=== PATIENT | male | born 1990 | race Caucasian/White ===

== ENCOUNTER 2018-12-20 09:15 | Observation (INO) ==
[2018-12-20 09:41] LABS: Urine Bilirubin Negative (NEGATIVE); Urine Blood 25 /ul (NEGATIVE); Urine Ketone Negative (NEGATIVE); Urine Nitrite Negative (NEGATIVE); Urine Protein Negative (NEGATIVE); Urine Specific Gravity >=1.030 SP.GR. (1.005-1.030); Urine Urobilinogen Normal (NORMAL); Urine pH 5.5 pH (5.0-7.0)
[2018-12-20 09:48] LABS: Urine Appearance Clear (CLEAR); Urine Bacteria None Seen; Urine Color Yellow; Urine RBC None Seen /hpf (0-5); Urine WBC None Seen /hpf (0-5)
[2018-12-20 09:50] LABS: Hematocrit 45.7 % (42.0-52.0); Hemoglobin 15.9 gm/dL (13.5-18.0); Mean Corpuscular Hemoglobin 31.7 pg (27-31); Mean Corpuscular Hgb Conc 34.8 g/dl (32-36); Mean Platelet Volume 9.4 fl (8-11.3); Neutrophil # 6.7 K/mm3 (1.3-6.0); Neutrophil % 64.7 % (42-75.0); Platelet Count 267 K/mm3 (150-450); Red Blood Count 5.02 M/mm3 (4.7-6.0); Red Cell Distribution Width 11.9 % (11.5-14.0); White Blood Count 10.4 K/mm3 (4.0-10.5)
[2018-12-20 09:59] LABS: Albumin * 4.3 gm/dl (3.4-5.0); Anion Gap 15.2 mmol/L (6.8-13.8); BUN/Creatinine Ratio 12.6 (9.0-21.6); Bilirubin, Total 0.5 mg/dL (0.0-1.1); Ca. Corrected For Albumin 8.8 mg/dL (8.4-10.2); Calcium * 9.4 mg/dL (7.9-10.9); Carbon Dioxide 25.3 mmol/L (24-32.6); Potassium 3.5 mmol/L (3.4-4.6); Total Protein 7.6 gm/dL (6.2-8.2)
[2018-12-20] MEDS ORDERED: KETOROLAC TROMETHAMINE 30 MG/ML VIAL IM ONE (09:59)
[2018-12-20] MEDS ORDERED: MORPHINE SULFATE 4 MG/ML SYRG IM ONE (10:43)
--- NOTE | 2018-12-20 10:49 | ERNOTE ---
Abdominal HPI - Narrative Date of Service: 12/20/18 - General Chief Complaint: Abdominal Pain Time Seen by Provider: 12/20/18 09:52 Source: patient Exam Limitations: no limitations - Immun/Allergies/Home Medications Immunizatons: IMMUNIZATION HX Immunizations Up to Date Yes History of Influenza Vaccine No Hx Pneumococcal Vaccination No Allergies/Adverse Reactions: Allergies No Known Drug Allergies Allergy (Verified 03/04/16 08:32) Home Medications: HOME MEDICATIONS NK 12/20/18 [Last Taken Unknown] - History of Present Illness Narrative: Patient presents to the ED for upper abdominal pain. This started at 5am and has been persistent since. He has had a few bouts of this in the past but it has always gone away. Never persisted like this. One emesis here. No diarrhea. No back pain. No CP or SOB. No testicular pain or urinary symptoms. Nothing makes this better or worse. Has not seen anyone for this in the past. No low abdominal pain. Timing: constant Quality: severe Activities at Onset: none Modifying Factors - (Improves): Present: other - nothing Modifying Factors - (Worsens): Present: other - nothing Associated Symptoms: Present: nausea, vomiting. Absent: diaphoresis, fever/chills, heartburn, shortness of breath Prior Abdominal Problems: Present: similar symptoms Prior Treatment: Absent: recently seen Review of Systems - Review of Systems Constitutional: Absent: fever EYE: Present: no symptoms reported ENT: Absent: sore throat Respiratory: Absent: shortness of breath Cardiology: Absent: chest pain Gastrointestinal/Abdominal: Present: See HPI Genitourinary: Absent: dysuria Musculoskeletal: Present: no symptoms reported Skin: Absent: rash All Other Systems: All systems neg except as marked Medical History (Updated 12/20/18 @ 11:54 by Ariana Jean RN) No pertinent past medical history Surgical History: Surgical History (Updated 12/20/18 @ 11:55 by Ariana Jean RN) No pertinent past surgical history Family History: Family History (Updated 12/20/18 @ 11:55 by Ariana Jean RN) Other No pertinent family history Social History: Preferred Language Divehi Do you have any evangelical or No cultural preference? Smoking Status Never smoker Have you smoked in the past 12 No months Do you dip or chew tobacco No Psych History No pertinent hx Alcohol Use none Drug Use marijuana No Social History Section defined Physical Exam - Physical Exam General Appearance: Present: alert, no apparent distress Head Exam: Present: normal inspection, no evidence of injury Eye Exam: Normal inspection: bilateral, PERRL: bilateral Ears, Nose, Throat: Present: normal ENT inspection Neck: Present: normal inspection Respiratory: Present: no respiratory distress, normal breath sounds, no accessory muscle use, lungs clear Cardiovascular/Chest: Present: regular rate, rhythm, normal peripheral pulses Gastrointestinal/Abdominal: Present: normal bowel sounds, nondistended, soft, other - RUQ tenderness and epigastric tenderness. No low abdominal tenderness. No RLQ tenderness. Back Exam: Absent: CVA tenderness (R), CVA tenderness (L) Extremity Exam: Present: normal inspection, non-tender, normal range of motion Neurological Exam: Present: alert, no motor/sensory deficits Skin Exam: Present: normal color, warm/dry Progress - Results and Orders Patient's Lab Results:: I have reviewed the patient's lab results. - Vital Signs Patient's Vital Signs:: I have reviewed the patient's vital signs. Vital Signs: Vital Signs 12/20/18 09:22 Temperature 35.6 C L Pulse Rate 69 Respiratory Rate 17 Blood Pressure 157/114 H O2 Sat by Pulse Oximetry 99 - X-Ray X-Ray #1 X-Ray: abdomen Interpretation: Interp. by me X-ray Comments: I reviewed official radiology report - CT/Ultrasound CT/Ultrasound Narrative: I reviewed official radiology report for RUQ US. - Progress/Reassessment Chief Complaint: Abdominal Pain Progress Note-Subjective: 12/20/18 11:57 IV ABx ordered. D/W Dr Ramos who will see the patient in the ED. Patient notified and understands. Departure Clinical Impression: Gallbladder pain, Gallstones, Abdominal pain - Departure Disposition: Still a patient Condition: Stable
[2018-12-20] MEDS ORDERED: PIPERACILLIN SODIUM/TAZOBACTAM 3.375 GM in DEXTROSE 5 % IN WATER 100 ML IV ONE ×2 (11:49)
--- NOTE | 2018-12-20 12:13 | HP ---
Chief Complaint - Chief Complaint Date of Service: 12/20/18 Time of Service: 12:08 Chief Complaint: acute cholecystitis History of Present Illness: Zay is a pleasant 28-year-old gentleman who awoke with abdominal pain this morning. The pain did not go away. It was so severe that it brought him to tears. The pain has improved since he has been in the ER, and received pain medication. He tried to make himself throw up to feel better which was ineffective. He had a bowel movement which also did not help. He has had this pain before, but it is only lasted for a few minutes. He is otherwise healthy. Medical History (Updated 12/20/18 @ 11:58 by Fish Rod MD) No pertinent past medical history Surgical History: Surgical History (Updated 12/20/18 @ 11:55 by Ariana Jean RN) No pertinent past surgical history Family History: Family History (Updated 12/20/18 @ 11:55 by Ariana Jean RN) Other No pertinent family history Social History: Preferred Language Turkish Do you have any zoroastrianism or No cultural preference? Smoking Status Never smoker Have you smoked in the past 12 No months Do you dip or chew tobacco No Psych History No pertinent hx Alcohol Use none Drug Use marijuana No Social History Section defined Review Of Systems (GEN) - Review of Systems Generalized/Overall Review: Present: Malaise EENTM: Present: No Symptoms Reported Respiratory: Present: No Symptoms Reported Cardiac: Present: No Symptoms Reported Abdominal: Present: Abdominal Pain Genitourinary: Present: No Symptoms Reported Musculoskeletal: Present: No Symptoms Reported Neurological: Present: No Symptoms Reported Skin: Present: No Symptoms Reported Endocrine: Present: No Symptoms Reported Immunizations: IMMUNIZATION HX Immunizations Up to Date Yes History of Influenza Vaccine No Hx Pneumococcal Vaccination No Allergies/Adverse Reactions: Allergies Allergy/AdvReac Type Severity Reaction Status Date / Time No Known Drug Allergies Allergy Verified 03/04/16 08:32 Home Medications: HOME MEDICATIONS NK 12/20/18 [Last Taken Unknown] Exam - Exam Vital Signs: Vital Signs - Last Taken Temp 35.6 C L 12/20/18 09:22 Pulse 62 12/20/18 11:40 Resp 17 12/20/18 11:40 BP 182/114 H 12/20/18 11:40 Pulse Ox 100 12/20/18 11:40 Constitutional: Present: Alert, Oriented x3, Cooperative ENT Exam: Present: hearing grossly normal Neck: Present: supple Back Exam: Present: normal inspection Breasts: Present: Exam deferred Respiratory: Present: lungs clear, normal breath sounds, no respiratory distress Cardiovascular/Chest: Present: regular rate, rhythm Abdomen: Present: Normal bowel sounds, soft, obese, tender, positive Silva sign /Rectal: Present: Exam deferred Extremity: Present: non-tender Skin Exam: Present: normal color Lymphatic: Present: no adenopathy Neurologic: Present: knockdown worker II-XII nml as tested Appearance: Present: appropriate appearance Eye contact: Present: cooperative Thoughts: Present: normal thought pattern Diagnostic Studies: Abnormal Lab Results 12/20/18 12/20/18 12/20/18 Range/Units 09:41 09:41 Unknown MCH 31.7 H (27-31) pg Neutrophils # 6.7 H (1.3-6.0) K/mm3 Anion Gap 15.2 H (6.8-13.8) mmol/L Random Glucose 124 H (70-110) mg/dL Urine Blood 25 H (NEGATIVE) /ul Laboratory Results WBC 10.4 K/mm3 (4.0-10.5) 12/20/18 09:41 RBC 5.02 M/mm3 (4.7-6.0) 12/20/18 09:41 Hgb 15.9 gm/dL (13.5-18.0) 12/20/18 09:41 Hct 45.7 % (42.0-52.0) 12/20/18 09:41 MCV 91.0 fl (78-100) 12/20/18 09:41 MCH 31.7 pg (27-31) H 12/20/18 09:41 MCHC 34.8 g/dl (32-36) 12/20/18 09:41 RDW 11.9 % (11.5-14.0) 12/20/18 09:41 Plt Count 267 K/mm3 (150-450) 12/20/18 09:41 MPV 9.4 fl (8-11.3) 12/20/18 09:41 Immature Gran % (Auto) 0.30 % (0.001-0.429) 12/20/18 09:41 Immature Gran # (Auto) 0.03 K/mm3 (0.000-0.0310) 12/20/18 09:41 64.7 % (42-75.0) 12/20/18 09:41 28.4 % (20-51) 12/20/18 09:41 4.5 % (0.0-9) 12/20/18 09:41 1.2 % (0.0-3.0) 12/20/18 09:41 0.9 % (0.0-1.0) 12/20/18 09:41 Nucleated RBC % 0.0 k/mm3 (0-1) 12/20/18 09:41 6.7 K/mm3 (1.3-6.0) H 12/20/18 09:41 2.96 k/mm3 (1.5-3.5) 12/20/18 09:41 0.5 k/mm3 (0.0-1.0) 12/20/18 09:41 0.1 k/mm3 (0.0-0.7) 12/20/18 09:41 Absolute Basophils 0.1 k/mm3 (0.0-0.1) 12/20/18 09:41 Sodium 138 mmol/L (132-142) 12/20/18 09:41 138 mmol/L (130-142) 12/20/18 09:41 Potassium 3.5 mmol/L (3.4-4.6) 12/20/18 09:41 Chloride 101 mmol/L (97-106) 12/20/18 09:41 Carbon Dioxide 25.3 mmol/L (24-32.6) 12/20/18 09:41 15.2 mmol/L (6.8-13.8) H 12/20/18 09:41 BUN 15 mg/dL (6-23) 12/20/18 09:41 1.19 mg/dL (0.4-1.4) 12/20/18 09:41 Est GFR (Non-Af Amer) 79 mL/min (60-130) 12/20/18 09:41 12.6 (9.0-21.6) 12/20/18 09:41 124 mg/dL (70-110) H 12/20/18 09:41 Calcium 9.4 mg/dL (7.9-10.9) 12/20/18 09:41 Calcium Adj for Albumin 8.8 mg/dL (8.4-10.2) 12/20/18 09:41 0.5 mg/dL (0.0-1.1) 12/20/18 09:41 AST 26 U/L (0-48) 12/20/18 09:41 ALT 66 U/L (19-67) 12/20/18 09:41 54 U/L (50-170) 12/20/18 09:41 7.6 gm/dL (6.2-8.2) 12/20/18 09:41 4.3 gm/dl (3.4-5.0) 12/20/18 09:41 Amylase 39 U/L (25-115) 12/20/18 09:41 131 U/L (73-393) 12/20/18 09:41 Yellow 12/20/18 Unknown Clear (CLEAR) 12/20/18 Unknown 5.5 pH (5.0-7.0) 12/20/18 Unknown Ur Specific [place] >=1.030 SP.GR. (1.005-1.030) 12/20/18 Unknown Negative mg/dL (NEGATIVE) 12/20/18 Unknown Negative mg/dL (NEGATIVE) 12/20/18 Unknown Negative mg/dL (NEGATIVE) 12/20/18 Unknown 25 /ul (NEGATIVE) H 12/20/18 Unknown Negative (NEGATIVE) 12/20/18 Unknown Negative mg/dl (NEGATIVE) 12/20/18 Unknown Normal EU/dl (NORMAL) 12/20/18 Unknown Ur Leukocyte Esterase Negative /ul (NEGATIVE) 12/20/18 Unknown None seen /hpf (0-5) 12/20/18 Unknown None seen /hpf (0-5) 12/20/18 Unknown Ur Epithelial Cells None seen /hpf (0-5) 12/20/18 Unknown None seen (NONE) 12/20/18 Unknown No culture indicated 12/20/18 Unknown Assessment/Plan - Narrative Narrative: Patient was given antibiotics in the ER. He'll be taken to the OR for laparoscopic possible open cholecystectomy. Risks and benefits of the procedure were discussed with the patient including bleeding, infection, bile leak, and damage to the common bile duct. He voices understanding and would like to proceed. - Assessment/Plan (1) Acute cholecystitis Problem: Acute (2) Gallstones Problem: Acute
[2018-12-20] MEDS: NORMAL SALINE 1,000 ML IV ONE ×2 (12:31→13:58)
--- NOTE | 2018-12-20 12:48 | ANES ---
Anesthesia Pre Procedure Eval Vitals/Labs: Last Vital Signs Temp 36.9 C 12/20/18 12:30 Pulse 76 12/20/18 12:30 Resp 15 12/20/18 12:30 BP 160/91 H 12/20/18 12:30 Pulse Ox 98 12/20/18 12:30 HOME MEDICATIONS NK 12/20/18 [Last Taken Unknown] Allergies/Adverse Reactions: Allergies Allergy/AdvReac Type Severity Reaction Status Date / Time No Known Drug Allergies Allergy Verified 03/04/16 08:32 - Planned Procedure Planned Procedure: abd pain Medication List Reviewed:: Yes Allergies Verified: Yes Medical History (Updated 12/20/18 @ 12:13 by Ashleigh Ramos DO) No pertinent past medical history Surgical History (Updated 12/20/18 @ 11:55 by Ariana Jean RN) No pertinent past surgical history Family History (Updated 12/20/18 @ 11:55 by Ariana Jean RN) Other No pertinent family history - Family Anesthesia History Family History:: no untoward family reactions to anesthesia - Airway/Neck/Teeth Within Normal Limits:: Yes Teeth Condition: intact Neck Exam: full range of motion Mallampatti Score: 2 Thyromental (T-M) distance: > 6 cm Mandibulo Hyoid distance: > 3 cm - Respiratory Respiratory Physical: lungs clear Smoking Status: Never smoker Sleep Apnea currently treated: No Sleep Apnea by current assessment: No - Cardiovascular Tolerate Activity: Fair Heart Sounds: S1 & S2, Regular - Anesthesia Assessment and Plan ASA Class: PS, II, E Anesthesia Type Plan: General ET Planned difficult intubation/equipment available: No
[2018-12-20] MEDS ORDERED: BUPIVACAINE HCL 50 ML VIAL IJ ONE (13:35)
[2018-12-20] MEDS ORDERED: ACETAMINOPHEN 325 MG TABLET PO PRN (14:40)
[2018-12-20] MEDS ORDERED: ONDANSETRON HCL/PF 2 MG/ML VIAL IV PRN (14:40)
--- NOTE | 2018-12-20 14:40 | ANES ---
Post Anesthesia Discharge - Transfer of Care Transfer of Care handoff given to nurse: Yes - Discharge from PACU Discharge from PACU when meets criteria: Yes
--- NOTE | 2018-12-20 14:50 | OR ---
Operative Report - Dictated Report Narrative: Date of Procedure: 12/20/18 Procedure: laparoscopic cholecystectomy Pre-procedure diagnosis: Acute Cholecystitis Post-procedure diagnosis: same Surgeon: Dr. Ashleigh Ramos Anesthesia: general Indication for procedure: Zay is a pleasant 28 yo male with acute cholecystitis diagnosed through the ER. Description of procedure: After appropriate informed consent was obtained patient was taken to the operating room, placed in the supine position. General anesthesia was achieved. The patient was prepped and draped in the usual sterile fashion. A 5 mm periumbilical incision was made, hemostat was used to dissect down to the fascia. A Veress needle was inserted, a saline drop test was performed which was satisfactory. The abdomen was insufflated to 15 mmHg. A 5mm blunt trocar was placed at the umbilicus. The camera was inserted, there was no evidence of a trocar injury. An 11 mm trocar was placed in subxiphoid position. A 5 mm trocar was placed in the right upper quadrant. An additional 5 mm trocar was placed in the right upper lateral quadrant The patient was placed in a head up, rotated left position, to facilitate exposure. The gallbladder was identified, and was elevated over the liver. The gallbladder was gangrenous. After grasping the gallbladder a hole was made and the bile was suctioned. (There was a large stone in the gallbladder that fell out but was placed in the endocatch bag.) The cystic duct was identified and was dissected out, this was directly entering the gallbladder. The cystic artery was then identified, it was directly entering the gallbladder. There were 3 clips placed on the stay side of the cystic duct, 1 clip was placed on the gallbladder side, the cystic duct was then transected. The cystic artery had 2 clips placed on the stay side, 1 on the gallbladder side. The EndoShears were used to transect the cystic artery. The gallbladder was then removed from the liver bed using electrocautery. The gallbladder was placed in an Endo Catch bag, and removed through the subxiphoid port. The liver was inspected and hemostasis was achieved. The area over the liver was irrigated until clear. The remainder of the abdomen was inspected and was satisfactory. The xiphoid trocar site was closed with an 0 Vicryl suture using a PMI device. The abdomen was desufflated. Local anesthetic was injected. The incisions were closed with inverted interrupted 4-0 Monocryl sutures. Mastisol and Steri-Strips were applied. The patient tolerated the procedure well and was transported to the PACU in satisfactory condition. Estimated blood loss: minimal Complications: none Specimens to pathology: Gallbladder Disposition: Admitted to the floor for observation
--- NOTE | 2018-12-20 15:27 | ANES ---
Post Anesthesia Assessment - Vital Signs Vitals: Last Vital Signs Temp 37.2 C 12/20/18 15:14 Pulse 81 12/20/18 15:14 Resp 16 12/20/18 15:14 BP 157/80 H 12/20/18 15:14 Pulse Ox 97 12/20/18 15:14 Airway Patency: Normal - Mental Status Level Of Consciousness: Awake - Pain Level Pain Score: 2 - N/V Assessment Nausea/Vomiting Presence: None Dehydration:: No
[2018-12-20] MEDS: HYDROcodone/ACETAMINOPHEN 1 EACH TABLET PO PRN ×2 (15:40→21:44)
[2018-12-20] MEDS: POTASSIUM CHLORIDE 20 MEQ in DEXTROSE 5%-0.5 NORMAL SALINE 990 ML IV SCH (16:17)
[2018-12-20] MEDS ORDERED: ENALAPRILAT DIHYDRATE 1.25 MG/ML VIAL IV PRN (18:13)
[2018-12-21] MEDS: POTASSIUM CHLORIDE 20 MEQ in DEXTROSE 5%-0.5 NORMAL SALINE 990 ML IV SCH (04:21)
[2018-12-21] MEDS: HYDROcodone/ACETAMINOPHEN 1 EACH TABLET PO PRN (04:37)
--- NOTE | 2018-12-21 09:43 | DS ---
(1) Acute cholecystitis Problem: Resolved (2) Gallstones Problem: Resolved Description of Stay: Zay came in through the emergency room with acute cholecystitis. He was taken to the OR for laparoscopic cholecystectomy. This was uneventful. He feels better today and feels ready for discharge. He has had high blood pressure and will need to follow up with his primary care physician. Procedures Performed: see notes below List Procedures: Laparoscopic cholecystectomy Results and Findings: Lab Pending Results 12/20/18 09:41: WBC 10.4, RBC 5.02, Hgb 15.9, Hct 45.7, MCV 91.0, MCH 31.7 H, MCHC 34.8, RDW 11.9, Plt Count 267, MPV 9.4, Immature Gran % (Auto) 0.30, Immature Gran # (Auto) 0.03, Neutrophils % 64.7, Lymphocytes % 28.4, Monocytes % 4.5, Eosinophils % 1.2, Basophils % 0.9, Nucleated RBC % 0.0, Neutrophils # 6.7 H, Lymphocytes # 2.96, Monocytes # 0.5, Eosinophils # 0.1, Absolute Basophils 0.1 12/20/18 09:41: Sodium 138, Plasma Sodium 138, Potassium 3.5, Chloride 101, Carbon Dioxide 25.3, Anion Gap 15.2 H, BUN 15, Creatinine 1.19, Est GFR (Non-Af Amer) 79, BUN/Creatinine Ratio 12.6, Random Glucose 124 H, Calcium 9.4, Calcium Adj for Albumin 8.8, Total Bilirubin 0.5, AST 26, ALT 66, Alkaline Phosphatase 54, Total Protein 7.6, Albumin 4.3, Amylase 39, Lipase 131 12/20/18 14:45: Pathology Specimen Sent to path 12/20/18 : Urine Color Yellow, Urine Appearance Clear, Urine pH 5.5, Ur Specific [place] >=1.030, Urine Protein Negative, Urine Glucose (UA) Negative, Urine Ketones Negative, Urine Blood 25 H, Urine Nitrate Negative, Urine Bilirubin Negative, Urine Urobilinogen Normal, Ur Leukocyte Esterase Negative, Urine RBC None seen, Urine WBC None seen, Ur Epithelial Cells None seen, Urine Bacteria None seen, Urine Culture Comments No culture indicated Discharge Location: Home Disposition: Home self-care Condition: Stable Discharge Activity: Activity as tolerated Discharge Diet: General/regular food Complete Home Medications List: Complete Home Medication List: Acetaminophen [Tylenol] 650 mg PO Q6H PRN tablet 12/21/18 HYDROcodone/ACETAMINOPHEN [[place] 5-325] 2 each PO Q6H PRN tablet 12/21/18
[2018-12-21 11:12] VITALS: BP 148/88
== END 2018-12-21 11:30 | disposition home or self-care (01) ==
LOC: ER 09:15 → SUR 12:55 → MS 12:55 → SUR 13:14
PROVIDERS: ADMIT Surgery; ATTEND Surgery
DX: K81.0 Acute cholecystitis
CPT/HCPCS: 36415; 74019; 74020; 76705; 80053; 81001; 82150; 83690; 85025; 88304; 96365; 99285; G0378